=== PATIENT | female | born 1975 | race Caucasian/White ===

== ENCOUNTER → 2017-12-14 | Outpatient (CLI) | payer OTHER ==
[2005-02-14 20:16] VITALS: TEMP 97.9
[~2017-12-14] MED LIST: ASPIR-LOW81 MG PO; CALCIUM CARBONATE; FOLIC ACID1 MG PO; NEXIUM PO; PHENERGAN25 MG RC; ZOFRAN 8MG8 MG PO
== END ==
LOC: MC.RAD 10:00
DX: Z12.31 Encounter for screening mammogram for malignant neoplasm of breast (principal); N64.89 Other specified disorders of breast

== ENCOUNTER → 2017-12-23 | Outpatient (CLI) | payer OTHER ==
[2005-02-14 20:16] VITALS: TEMP 97.9
== END ==
LOC: MC.RAD 09:24
DX: N64.89 Other specified disorders of breast (principal)

== ENCOUNTER → 2019-06-14 | Outpatient (CLI) | payer OTHER ==
[2005-02-14 20:16] VITALS: TEMP 97.9
== END ==
LOC: MC.RAD 16:32
DX: Z12.31 Encounter for screening mammogram for malignant neoplasm of breast (principal)

== ENCOUNTER → 2020-06-18 | Outpatient (CLI) | payer OTHER ==
[2005-02-14 20:16] VITALS: TEMP 97.9
== END ==
LOC: MC.RAD 10:58
DX: Z12.31 Encounter for screening mammogram for malignant neoplasm of breast (principal)

== ENCOUNTER → 2021-09-07 | Outpatient (CLI) | payer OTHER ==
[2005-02-14 20:16] VITALS: TEMP 97.9
== END ==
LOC: MC.RAD 07-08 08:00
DX: Z12.31 Encounter for screening mammogram for malignant neoplasm of breast (principal)

== ENCOUNTER → 2022-10-19 | Outpatient (CLI) | payer OTHER ==
[2005-02-14 20:16] VITALS: TEMP 97.9
== END ==
LOC: MC.RAD 09:04
DX: Z12.31 Encounter for screening mammogram for malignant neoplasm of breast (principal)

== ENCOUNTER → 2023-11-22 | Outpatient (CLI) | payer OTHER ==
[2005-02-14 20:16] VITALS: BP 136/81; PULSE 80; TEMP 97.9
== END ==
LOC: MC.RAD 10:46
DX: Z12.31 Encounter for screening mammogram for malignant neoplasm of breast (principal); N64.89 Other specified disorders of breast

== ENCOUNTER → 2023-11-25 | Outpatient (CLI) | payer OTHER ==
[2005-02-14 20:16] VITALS: BP 136/81; PULSE 80; TEMP 97.9
== END ==
LOC: MC.RAD 12:54
DX: R92.8 Other abnormal and inconclusive findings on diagnostic imaging of breast (principal)